=== PATIENT | male | born 1995 | race Caucasian/White ===

== ENCOUNTER 2017-09-05 09:15 | Emergency (ER) | payer BC, OTHER ==
[~2017-09-05] VITALS: Ht 182.9 cm; Wt 108.9 kg
[~2017-09-05 09:15] MED LIST: [UNRECOGNIZED DRUG - OTHER]
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
--- NOTE | 2017-09-05 10:19 | Diagnostic Imaging Report ---
INDICATION: Injury. Pain. COMPARISON: 11/01/2011 FINDINGS: 3 views of the left ankle are obtained. No acute fracture, malalignment or osseous destructive process is seen. Joint spaces preserved. Corticated osseous density is seen distal to the lateral malleolus unchanged from the prior exam. There is moderate soft tissue swelling. IMPRESSION: There is soft tissue swelling without evidence of an acute fracture. Dictated by: Dictated on workstation # [id number]
[2017-09-05] MEDS ORDERED: TRAM-42 PO (10:27)
[2017-09-05] MEDS ORDERED: NAPR500T4 PO (10:27)
[2017-09-05 11:10] VITALS: BP 138/83
== END 2017-09-05 10:58 | disposition home or self-care (01) ==
LOC: EDUNIT# 09:15 → ER 09:19
DX: S93.402A Sprain of unspecified ligament of left ankle, initial encounter (principal); J45.909 Unspecified asthma, uncomplicated; F17.210 Nicotine dependence, cigarettes, uncomplicated; Z88.8 Allergy status to other drugs, medicaments and biological substances; X50.0XXA Overexertion from strenuous movement or load, initial encounter; Y93.67 Activity, basketball
CPT/HCPCS: 73610; 99283

== ENCOUNTER 2018-04-08 16:39 | Emergency (ER) | payer BC ==
[~2018-04-08] VITALS: Ht 182.9 cm; Wt 104.3 kg
[~2018-04-08 16:39] MED LIST changes: +NAPR-915 PO; +TRAM-42 PO
[2018-04-08] MEDS ORDERED: KETOROLAC 30 MG/ML VIAL IVP ONE (18:15)
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
[2018-04-08 19:02] LABS: BASOPHILS % (AUTO) 0 % (0-10); EOSINOPHILS # (AUTO) 0.3 10^3/uL (0.0-0.3); EOSINOPHILS % (AUTO) 2 % (0-10); HEMATOCRIT 52 % (40-54); HEMOGLOBIN 18.4 G/DL (13.3-17.7); LYMPHOCYTES # (AUTO) 2.8 X 10^3 (1.0-4.0); LYMPHOCYTES % (AUTO) 24 % (12-44); MEAN CORPUSCULAR HEMOGLOBIN 33 PG (25-34); MEAN CORPUSCULAR HGB CONC 36 G/DL (32-36); MEAN CORPUSCULAR VOLUME 94 FL (80-99); MEAN PLATELET VOLUME 10.8 FL (7.4-10.4); MONOCYTES # (AUTO) 1.3 X 10^3 (0.0-1.0); MONOCYTES % (AUTO) 11 % (0-12); NEUTROPHILS # (AUTO) 7.3 X 10^3 (1.8-7.8); NEUTROPHILS % (AUTO) 62 % (42-75); PLATELET COUNT 236 10^3/uL (130-400); RED BLOOD COUNT 5.52 10^6/uL (4.35-5.85); RED CELL DISTRIBUTION WIDTH 13.3 % (10.0-14.5); WHITE BLOOD COUNT 11.7 10^3/uL (4.3-11.0)
[2018-04-08 19:25] LABS: ALANINE AMINOTRANSFERASE 28 U/L (0-55); ALBUMIN 4.7 GM/DL (3.2-4.5); ALKALINE PHOSPHATASE 82 U/L (40-136); BILIRUBIN,TOTAL 0.5 MG/DL (0.1-1.0); BUN/CREATININE RATIO 14; CARBON DIOXIDE 27 MMOL/L (21-32); CHLORIDE 107 MMOL/L (98-107); CREATININE SERUM 0.87 MG/DL (0.60-1.30); GFR ESTIMATED > 60; GLUCOSE 82 MG/DL (70-105); POTASSIUM 4.1 MMOL/L (3.6-5.0); SODIUM 143 MMOL/L (135-145); TOTAL PROTEIN 7.8 GM/DL (6.4-8.2)
[2018-04-08 19:54] VITALS: BP 135/83
== END 2018-04-08 19:55 | disposition home or self-care (01) ==
LOC: EDUNIT# 16:39 → ER 16:41
DX: R07.81 Pleurodynia (principal); J45.909 Unspecified asthma, uncomplicated; F17.210 Nicotine dependence, cigarettes, uncomplicated; Z88.8 Allergy status to other drugs, medicaments and biological substances; V49.50XA Passenger injured in collision with unspecified motor vehicles in traffic accident, initial encounter
CPT/HCPCS: 36415; 71046; 80053; 84484; 85025; 93005; 96374